=== PATIENT | female | born 1965 | race Caucasian/White ===

== ENCOUNTER → 2020-08-07 04:49 | Outpatient (CLI) | payer BC, SELFPAY ==
[2020-08-07 20:06] LABS: SARS-CoV-2 RNA PCR Negative
== END ==
PROVIDERS: PCP Family Medicine; Visit Provider Urology
DX: Z01.812 Encounter for preprocedural laboratory examination (principal); Z20.822 Contact with and (suspected) exposure to COVID-19
CPT/HCPCS: C9803; U0003; U0005

== ENCOUNTER 2020-08-10 02:29 | Day surgery (SDC) | payer BC, SELFPAY ==
--- NOTE | 2020-08-03 19:31 | PM.IMHP ---
H&P: HPI History of Present Illness Date/Time: 08/03/20 19:31 she has overactive bladder. She gets Botox for this. She also has intrinsic sphincter deficiency. In addition there was exposed mesh from previous sling procedure. Chief Complaint: intrinsic sphincter deficiency Review of Systems Review of Systems: All systems reviewed & are unremarkable except as noted in HPI and below PMFSH Family History Family History (Updated 08/03/20 @ 19:34 by Franco Gomez MD) Other Diabetes mellitus Heart disease Hypertension Social History Social History (Updated 08/03/20 @ 19:34 by Franco Gomez MD) Smoking status: Current every day smoker Exam Const: General: cooperative HENMT: Head: normal to inspection Mouth: Yes Normal oral and palatal mucosa present Neck: Neck: normal visual inspection Resp: Effort & Inspection: normal respiratory effort and able to speak in complete sentences GI: Inspection: normal to inspection Skin: General skin exam: normal color and no rashes or lesions noted Neuro: General: patient oriented x3 Assessment and Plan Assessment and plan (1) Intrinsic sphincter deficiency (ISD): Code(s): N36.42 - Intrinsic sphincter deficiency (ISD) Status: Acute Assessment and Plan: cystoscopy with bulking agent (2) Exposure of vaginal mesh through vaginal wall: Code(s): T83.721A - Exposure of implanted vaginal mesh into vagina, initial encounter Status: Acute Assessment and Plan: excision of exposed mesh
[2020-08-06 12:14] VITALS: BMI 37.0
--- NOTE | 2020-08-09 12:57 | WPDANESEPPF ---
Anes - Initial Pre Proc Eval Procedure: Operation Date: 08/10/20 09:45 Proposed Procedures p Excision Exposure of Implanted Vaginal Mesh, - Franco Gomez MD s Cystoscopy with Injection Bulking Agent - Franco Gomez MD Date/Time: 08/09/20 12:57 Surgeon: Franco Gomez MD Pre Op Diagnosis: exposed implanted vag mesh Patient Data Age: 55 Gender: F Height: 1.68 m Weight: 104.3 kg Allergies Allergy/AdvReac Type Severity Reaction Status Date / Time pregabalin [From Lyrica] Allergy Severe Swelling Verified 08/10/20 08:30 Home Medications Medication Instructions Recorded Confirmed Type albuterol 90 mcg INHALATION Q6H PRN 08/06/20 08/10/20 History armodafinil 250 mg PO DAILY 08/06/20 08/10/20 History desmopressin 0.2 mg PO HS 08/06/20 08/10/20 History Patient hx anesthesia problems: none Family hx anesthesia problems: none PMFSH Past Medical History Medical History Asthma Depression Exposure of vaginal mesh through vaginal wall GERD (gastroesophageal reflux disease) Intrinsic sphincter deficiency (ISD) Obesity SHELLEY (obstructive sleep apnea) Overactive bladder Smoker Surgical History Surgical History (Updated 08/09/20 @ 12:58 by Chance Sullivan MD) H/O laminectomy Status post creation of urethral sling by suprapubic approach Family History Family History (Updated 08/03/20 @ 19:34 by Franco Gomez MD) Other Diabetes mellitus Heart disease Hypertension Social History Social History (Updated 08/03/20 @ 19:34 by Franco Gomez MD) Smoking packs per day: 0.5 Smoking cigarettes per day: 10.0 Years smoked: 31 Smoking pack-years: 15.50 Smoking status: Current every day smoker Tobacco type: cigarettes Alcohol intake: never Substance use: never Substance use type: does not use Living arrangements: alone Spiritual care concerns: No Anes - Eval Final PreProcedure Day of Procedure 08/09/20 12:57 Patient weight: obese Heart: regular rate and rhythm Lungs: clear to auscultation and normal air movement Airway: Mallampati scale class II Neurological: alert and oriented Last oral intake: >/= 8 hours ASA classification: III Emergent: no Anesthetic plan: proceed Anesthesia type and monitoring: general LMA and ETT Informed Consent: The patient's anesthetic plan and its attendant risks and benefits were discussed with the patient/family/POA. Questions were solicited and answers provided to the satisfaction of the patient/family/POA.
--- NOTE | 2020-08-10 07:15 | WPDHPUPDATE1 ---
History and Physical Update Update Date/Time: 08/10/20 07:15 History and Physical has been reviewed, including an updated exam of the patient. There are NO changes in the patient's condition. Risks, benefits, and alternatives have been discussed and questions answered. Patient agrees to proceed with procedure.
[2020-08-10 07:45] VITALS: BP 168/63; PULSE 86; RESP 18; TEMP 36.3; O2SAT 99
[2020-08-10] MEDS: LACTATED RINGERS 1,000 ML 30 ML IV CONT (08:21)
[2020-08-10] MEDS: ceFAZolin 2 GM/D5W 50 ML 2 GM/50 ML BAG IVPB (09:27)
[2020-08-10] MEDS: LIDOCAINE HCL 2% GEL UROJET 10 ML PKG MUCOUS MEM (09:38)
[2020-08-10] MEDS: LIDO 1%/EPINEPHRINE 1:100,000 50 ML VIAL 20 ML INFILTRATE (09:39)
[2020-08-10 09:58] VITALS: BP 109/58; PULSE 69; RESP 14; O2SAT 96
--- NOTE | 2020-08-10 10:05 | P.OP_ITS ---
Procedure Note - Detailed Date of procedure: 08/10/20 Pre-op diagnosis: exposed implanted vag mesh Exposed vaginal mesh Intrinsic sphincter deficiency Post-op diagnosis: same Procedure performed: Removal of exposed vaginal mesh Cystoscopy with implantation of suburethral implant material [id number] Description of procedure: She was correctly identified and informed consent was obtained. She was brought to the operating room. She was given mac anesthesia. She was placed in the dorsal lithotomy position. She was prepped and draped in a sterile fashion. A time-out performed. A [place] retractor was placed. Examination revealed a fixed urethra. She also had a long segment of vaginal mesh exposed the mid urethra. There was no surrounding inflammation or granulation tissue. I was able to it grab this piec e of exposed mesh with a clamp. I dissected laterally and removed a 2 cm segment of exposed mesh and sent it for pathologic analysis. There was no bleeding. No suture was required. There is no other mesh exposure. I then turned my attention to the bulking agent. Cystoscopy revealed no tumors in the bladder and an open urethra consistent with intrinsic sphincter deficiency. I injected the bulking agent into the urethra at the 10:00 a.m. to o'clock and 6 o'clock position. There is excellent bulking effect. Her bladder was drained with a 12 [place] red rubber catheter. She was awakened and transferred to the PACU in stable condition. Implants: Macroplastique Anesthesia: MAC Surgeon: Franco Gomez MD Drains: No Packing: No Complications: No immediate complications Condition: stable Disposition: PACU
[2020-08-10 10:28] VITALS: BP 122/62; PULSE 72; RESP 14
--- NOTE | 2020-08-10 10:42 | SUR.PHASEII ---
PT URINATED AT 1015 WITHOUT ISSUE. SHE FELT LIKE SHE EMPTIED. PT URINATED AGAIN AT 1045, WITHOUT ISSUE.
== END 2020-08-10 10:45 | disposition home or self-care (01) ==
PROVIDERS: PCP Family Medicine; Visit Provider Urology
PROC: (CPT 51715; principal; 2020-08-10 09:45)
PROC: 3E0K8GC Introduction of Other Therapeutic Substance into Genitourinary Tract, Via Natural or Artificial Opening Endoscopic (ICD-10-PCS; CPT 51715; 2020-08-10 09:45)
DX: T83.721A Exposure of implanted vaginal mesh into vagina, initial encounter (principal); Y83.8 Other surgical procedures as the cause of abnormal reaction of the patient, or of later complication, without mention of misadventure at the time of the procedure; N36.42 Intrinsic sphincter deficiency (ISD); J45.909 Unspecified asthma, uncomplicated; G47.33 Obstructive sleep apnea (adult) (pediatric); F32.9 Major depressive disorder, single episode, unspecified; N32.81 Overactive bladder; K21.9 Gastro-esophageal reflux disease without esophagitis; Z79.84 Long term (current) use of oral hypoglycemic drugs; F17.210 Nicotine dependence, cigarettes, uncomplicated; E66.9 Obesity, unspecified; Z68.39 Body mass index [BMI] 39.0-39.9, adult
CPT/HCPCS: 51715; 57295; 88300; A9270; J0690; J2704; J3010; J7030; J7120; L8606